=== PATIENT | male | born 1980 | race Caucasian/White ===

== ENCOUNTER 2024-04-07 14:49 | Emergency (ER) | payer MEDICAID ==
[~2024-04-07] VITALS: Ht 165.1 cm; Wt 64.0 kg
[2024-04-07 14:59] VITALS: TEMP 98.6
[2024-04-07] MEDS: KETOROLAC 30MG/ML VIAL IM ONE (15:59)
[2024-04-07] MEDS: OXYCODONE HCL/ACETAMINOPHEN 5/325MG TABLET PO ONE (16:04)
[2024-04-07] MEDS ORDERED: LIDOCAINE HCL 1% 20ML VIAL INFIL ONE (17:00)
[2024-04-07] MEDS: PROPOFOL 200MG/20ML VIAL IV ONE (18:05)
[2024-04-07] MEDS: KETAMINE HCL 50 MG/ML 10ML IV ONE (18:05)
[2024-04-07 18:09] VITALS: O2SAT 99
[2024-04-07] MEDS ORDERED: NAPR-681 MT (18:16)
[2024-04-07 18:42] VITALS: BP 117/72; PULSE 97; RESP 18; O2SAT 99
[2024-04-07] MEDS: ONDANSETRON HCL 4MG/2ML INJ IV ONE (19:11)
== END 2024-04-07 19:10 | disposition home or self-care (01) ==
LOC: ER 14:49 → EDBEDREQ 17:29 → ER 19:10 → CANBEDREQ 04-08 11:57
DX: S53.105A Unspecified dislocation of left ulnohumeral joint, initial encounter (principal); Z79.1 Long term (current) use of non-steroidal anti-inflammatories (NSAID); W22.01XA Walked into wall, initial encounter; Y93.89 Activity, other specified; Y92.89 Other specified places as the place of occurrence of the external cause; Y99.8 Other external cause status
CPT/HCPCS: 73060; 73080; 73090; 24600; 96372; 99152; 99153; 99285; J3490 ×2; J1885; J2405; J2704; Z7610 ×4; 29105; A4565

== ENCOUNTER 2024-06-04 15:02 | Emergency (ER) | payer MEDICAID, OTHER ==
[~2024-06-04] VITALS: Ht 172.7 cm; Wt 77.1 kg
[~2024-06-04 15:02] MED LIST: NAPR-681 MT
[2024-06-04] MEDS: SODIUM CHLORIDE 0.9% 1,000 ML IV ONE (16:00)
[2024-06-04 16:10] VITALS: O2SAT 100
[2024-06-04 16:29] LABS: HEMOGLOBIN 15.2 g/dL (14.0-18.0); MEAN CORPUSCULAR HEMOGLOBIN 31.8 pg (28.0-32.0); MEAN CORPUSCULAR HGB CONC 33.7 g/dL (31.0-37.0); MEAN CORPUSCULAR VOLUME 94.2 fL (80.0-94.0); PLATELET 275 x1000/uL (130-400); RED BLOOD CELL COUNT 4.77 mill/uL (4.7-6.1); RED CELL DISTRIBUTION WIDTH 12.8 % (11.6-14.6); WHITE BLOOD COUNT 8.2 x1000/uL (4.5-11.0)
[2024-06-04] MEDS: PROPOFOL 200MG/20ML VIAL IV ONE (16:40)
[2024-06-04 16:53] LABS: CARBON DIOXIDE 27 mEq/L (21-32); CHLORIDE 100 mEq/L (98-107); SODIUM 140 mEq/L (136-145)
[2024-06-04 16:54] LABS: CALCIUM 9.7 mg/dL (8.7-10.4)
[2024-06-04 16:58] LABS: CREATININE 0.9 mg/dL (0.6-1.3)
[2024-06-04 16:59] LABS: GLUCOSE 119 mg/dL (70-105); UREA NITROGEN BLOOD 14 mg/dL (9-23)
[2024-06-04] MEDS ORDERED: HYDR-4001 MT (17:21)
[2024-06-04] MEDS ORDERED: NAPR-681 MT (17:21)
[2024-06-04 17:50] VITALS: BP 134/94; PULSE 87; RESP 16; TEMP 36.8; O2SAT 100
== END 2024-06-04 18:00 | disposition home or self-care (01) ==
LOC: ER 15:02
DX: S53.125A Posterior dislocation of left ulnohumeral joint, initial encounter (principal); Z79.1 Long term (current) use of non-steroidal anti-inflammatories (NSAID); V00.148A Other scooter (nonmotorized) accident, initial encounter; Y93.89 Activity, other specified; Y92.89 Other specified places as the place of occurrence of the external cause; Y99.8 Other external cause status
CPT/HCPCS: 80048; 85027; 86850; 86900; 86901; 36415; 73070; 73080; 24600; 96360; 99152; 99285; J2704; J7030; Z7610